=== PATIENT | male | born 1975 | race American Indian/Alaskan Native ===

== ENCOUNTER 2017-02-18 10:55 | Outpatient (CLI) | payer OTHER ==
--- NOTE | 2017-02-18 12:27 | Ultrasound Report ---
ULTRASOUND RENAL INDICATION: Chronic kidney disease, stage III. COMPARISON: None similar at this institution. FINDINGS: Renal sonography suggests mild increased renal cortical echogenicity. Grossly preserved contours. No hydronephrosis. RIGHT KIDNEY measures 11.8 x 4.6 x 5.7 cm with cortical thickness of 1.4 cm. Approximately 1.5 x 0.9 cm upper cortical cyst, image 9. LEFT KIDNEY estimated at 12 x 5.8 x 4.7 cm with cortical thickness of 1.5 cm. A 5 mm lower cortical cyst noted, image 27. URINARY BLADDER suboptimally distended and assessed. CONCLUSION: Mild underlying medical renal disease and small bilateral renal cysts sonographically without acute renal abnormality. Please correlate. Thank you for the opportunity to participate in this patient's care.
== END 2017-02-18 10:56 | disposition home or self-care (01) ==
LOC: US 10:55
PROVIDERS: ATTEND Internal Medicine Nephrology
DX: N18.3 Chronic kidney disease, stage 3 (moderate) (principal); N28.1 Cyst of kidney, acquired
CPT/HCPCS: 76770

== ENCOUNTER 2017-06-08 07:38 | Day surgery (SDC) | payer OTHER ==
[2017-06-08] MEDS ORDERED: VERSED ONE (09:15)
[2017-06-08] MEDS ORDERED: HEPARIN/NS 5000 UNIT/500ML(CATH LAB) 500 ML IR ONE (09:15)
[2017-06-08] MEDS ORDERED: SUBLIMAZE ONE (09:16)
[2017-06-08] MEDS ORDERED: NACL 0.9% 250ML 250 ML ONE (09:16)
[2017-06-08] MEDS ORDERED: XYLOCAINE 2% INFILTRATI ONE (09:16)
--- NOTE | 2017-06-08 09:25 | Short Stay Summary ---
Short Stay Documentation Date of service: 06/08/17 - History Past Medical History: ESRD, renal failure Social history: no significant social history - Allergies and Medications Current Medications: Allergies No Known Allergies Allergy (Unverified 06/03/17 16:44) Home Medications Medication Instructions Recorded Confirmed Last Taken Type Amlodipine Besylate [Amlodipine 10 tab PO DAILY 06/03/17 06/08/17 06/07/17 History Besylate] Ascorbic Acid [Vitamin C] 1 tab PO DAILY 06/03/17 06/08/17 06/07/17 History Ascorbic Acid [Vitamin C] 1 tab PO DAILY 06/03/17 06/08/17 06/07/17 History Carvedilol [Coreg] 25 mg PO BID 06/03/17 06/08/17 06/07/17 History Ferrous Sulfate [Ferrous Sulfate] 1 tab PO DAILY 06/03/17 06/08/17 06/07/17 History 1 Insulin NPH Hum/Reg Insulin Hm 30 unit SQ BID 06/03/17 06/08/17 06/07/17 History [Humulin 70-30 Vial] Sodium Bicarbonate [Sodium 1 tab PO TID 06/03/17 06/08/17 06/07/17 History Bicarbonate] 1 Zinc Sulfate [Zinc Sulfate] 2 tab PO DAILY 06/03/17 06/08/17 06/07/17 History - Physical exam General appearance: no acute distress Integumentary: no rash Lungs: Clear to auscultation, Other (rigth chest wall catheter without drainage or erythema) Heart: Regular rate Extremities: no ischemia, pulses intact - Brief post op/procedure progress note Date of procedure: 06/08/17 Pre-op diagnosis: Bactremia Post-op diagnosis: same Procedure: Exchange tunneled central venous catheter Anesthesia: local Findings: uncomplicated catheter exchange Surgeon: JESUS AGUILAR Estimated blood loss: none Pathology: none Condition: stable - Disposition Condition at discharge: Stable Disposition: DC-01 TO HOME OR SELFCARE Short Stay Discharge Plan Follow up with: MATTHIAS HERNANDEZ MD [Primary Care Provider] - 7 Days
[2017-06-08] MEDS: HEPARIN 10,000 UNITS/10 ML ONE ×2 (09:44→09:45)
[2017-06-08 10:57] VITALS: BP 123/75
--- NOTE | 2017-06-10 15:49 | Operative Report ---
Operative Report Operative Report: Preoperative diagnosis: Infected tunneled central venous catheter Postoperative diagnosis: Same Procedure performed: Exchange of tunneled central venous catheter via same access point Surgeon: Victorino Fields MD Side Door Worker: None Anesthesia: Moderate sedation Estimated blood loss: None Specimen: Catheter tip Complications: None Procedure in detail: After preoperative consent was obtained, the patient was brought into the cardiac catheterization suite. The patient was placed supine on the table. The correct patient and the correct site for surgery was identified. The right chest, neck and previously placed catheter was prepped with a Hibiclens prep and then a ChloraPrep and draped in sterile fashion. Fluoroscopy confirmed the tip of the catheter in the right atrium. 2% lidocaine was instilled at the catheter exit site, sharp dissection was then used to remove the catheter in the subcutaneous cuff. The catheter was transected and 20.035 Glidewire were passed under fluoroscopic guidance into the right atrium. The old catheter was removed and the tip was sent for culture. A 19 cm tip to cuff catheter was placed through the subcutaneous tunnel into the right atrium via the previous access site.the catheter was then secured to the chest wall with a 2-0 nylon suture. The catheter was locked with heparin 2500 units of heparin per port. The catheter replaced and the catheter was dressed sterilely. The patient tolerated the procedure well. Disposition: Home
== END 2017-06-08 11:05 | disposition home or self-care (01) ==
LOC: CATHLABREC 07:38
PROVIDERS: ATTEND Surgery Vascular Surgery
DX: T80.218A Other infection due to central venous catheter, initial encounter (principal); Y83.8 Other surgical procedures as the cause of abnormal reaction of the patient, or of later complication, without mention of misadventure at the time of the procedure; N18.4 Chronic kidney disease, stage 4 (severe)
CPT/HCPCS: 36415; 36581; 77001; 84132; 87076; 87116; 87186; C1750; C1769; J1644; J2250; J3010; J7050

== ENCOUNTER 2017-09-01 12:28 | Day surgery (SDC) | payer MEDICARE, OTHER ==
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
--- NOTE | 2017-09-01 14:17 | Anesthesia Day of Surgery ---
Anesthesia Day of Surgery - Day of Surgery Patient Examined: Yes Patient H&P Reviewed: Yes Patient is NPO: Yes Beta Blockers: Yes
[2017-09-01 14:33] LABS: Hematocrit 35.9 % (35.5-45.6); Hemoglobin 10.9 gm/dl (11.8-15.2)
[2017-09-01 14:38] LABS: Calcium 9.6 mg/dL (8.4-10.2); Chloride 95.5 mmol/L (98-107); Potassium 5.5 mmol/L (3.6-5.0)
[2017-09-01] MEDS ORDERED: NACL 0.9% 1000 ML 1,000 ML IV SCH (15:00)
[2017-09-01] MEDS ORDERED: PEPCID IV NR (15:00)
[2017-09-01] MEDS ORDERED: VERSED IV NR (15:00)
[2017-09-01] MEDS ORDERED: ANCEF/STERILE WATER 2 GM/20 ML IV NR (15:00)
[2017-09-01] MEDS ORDERED: DIPRIVAN 10 MG/ML IV ONE (15:01)
[2017-09-01] MEDS ORDERED: DILAUDID ONE ×2 (15:02→17:08)
[2017-09-01] MEDS ORDERED: MARCAINE 0.25% INFILTRATI ONE (15:07)
[2017-09-01] MEDS ORDERED: XYLOCAINE 1% 20 mL ONE (15:07)
[2017-09-01] MEDS ORDERED: HEPARIN 10,000 UNITS/10 ML ONE ×2 (15:07→16:08)
[2017-09-01] MEDS ORDERED: NACL 0.9% 250ML 250 ML ONE (15:08)
[2017-09-01] MEDS ORDERED: NACL 0.9% 500 ML 500 ML ONE (15:08)
[2017-09-01] MEDS ORDERED: MARCAINE 0.5% INFILTRATI ONE ×2 (15:12→15:20)
[2017-09-01] MEDS ORDERED: ANCEF ONE (15:13)
[2017-09-01] MEDS ORDERED: XYLOCAINE 1% 20 mL INFILTRATI ONE (15:20)
[2017-09-01] MEDS ORDERED: HEPARIN 10,000 UNITS/10 ML IR ONE (15:20)
[2017-09-01] MEDS ORDERED: NACL 0.9% 250ML IV ONE (15:20)
[2017-09-01] MEDS ORDERED: ANCEF IR ONE (15:20)
[2017-09-01] MEDS ORDERED: XYLOCAINE MPF 2% ONE (16:08)
[2017-09-01] MEDS ORDERED: PERCOCET 5/325 PO PRN (16:55)
--- NOTE | 2017-09-01 16:55 | Short Stay Summary ---
Short Stay Documentation Date of service: 09/01/17 Narrative H&P: Renal failure needs AV fistula - Allergies and Medications Current Medications: Allergies No Known Allergies Allergy (Verified 08/27/17 14:30) Home Medications Medication Instructions Recorded Confirmed Last Taken Type Amlodipine Besylate [Amlodipine 10 tab PO DAILY 06/03/17 09/01/17 08/31/17 09: 00 History Besylate] Ascorbic Acid [Vitamin C] 1 tab PO DAILY 06/03/17 09/01/17 08/31/17 09:00 History Carvedilol [Coreg] 25 mg PO BID 06/03/17 09/01/17 08/31/17 09:00 History Ferrous Sulfate [Ferrous Sulfate] 1 tab PO DAILY 06/03/17 09/01/17 08/31/17 09: 00 History Sodium Bicarbonate [Sodium 1 tab PO TID 06/03/17 09/01/17 08/31/17 17:00 History Bicarbonate] Zinc Sulfate [Zinc Sulfate] 2 tab PO DAILY 06/03/17 09/01/17 08/31/17 09:00 History Insulin Glargine,Hum.rec.anlog 40 unit SQ QAM 08/27/17 09/01/17 08/31/17 09:00 History [Lantus Solostar] Active Medications Cefazolin Sodium (Ancef/Sterile Water 2 Gm/20 Ml) 2 gm IV PREOP NR Stop: 09/01/17 23:59 Famotidine (Pepcid) 20 mg IV PREOP NR Stop: 09/01/17 23:59 Last Admin: 09/01/17 14:53 Dose: 20 mg Sodium Chloride (Nacl 0.9% 1000 Ml) 1,000 mls @ 42 mls/hr IV DIRECT YOEL Last Admin: 09/01/17 14:53 Dose: 42 mls/hr Midazolam HCl (Versed) 2 mg IV PREOP NR Stop: 09/01/17 23:59 Last Admin: 09/01/17 14:55 Dose: 2 mg - Physical exam General appearance: no acute distress Heart: Regular rate Extremities: no ischemia - Brief post op/procedure progress note Date of procedure: 09/01/17 Pre-op diagnosis: ESRD Post-op diagnosis: same Anesthesia: GETA Findings: Left brachiocephalic fistula Surgeon: JESUS AGUILAR Estimated blood loss: minimal Pathology: none Condition: stable - Disposition Condition at discharge: Good Disposition: DC-01 TO HOME OR SELFCARE Short Stay Discharge Plan Follow up with: MATTHIAS HERNANDEZ MD [Primary Care Provider] - 7 Days
[2017-09-01] MEDS ORDERED: NORMODYNE IV ONE (17:00)
[2017-09-01] MEDS: DILAUDID IV PRN ×3 (17:00→17:26)
[2017-09-01 20:57] VITALS: BP 150/88
--- NOTE | 2017-09-02 05:30 | Operative Report ---
PREOPERATIVE DIAGNOSIS: End-stage renal disease. POSTOPERATIVE DIAGNOSIS: End-stage renal disease. PROCEDURE: Left brachiocephalic arteriovenous fistula. SURGEON: Vicotrino Fields MD CYLINDER STEAMER: None. ANESTHESIA: General anesthesia by LMA. ESTIMATED BLOOD LOSS: Minimal. SPECIMENS: None. COMPLICATIONS: None. INDICATIONS FOR PROCEDURE: The patient requires access for long-term hemodialysis. DESCRIPTION OF PROCEDURE: The patient brought to the operating room. He was given general anesthesia by LMA. The left lower extremity was prepped with ChloraPrep, draped in a sterile fashion after correct patient and the correct site for surgery was identified. An oblique incision was made at the antecubital fossa. Sharp and electrocautery dissection used to dissect through skin and subcutaneous tissue. The median antecubital branch of cephalic vein was identified. It was noted to be patent without stenosis. It was dissected proximally and distally. The brachial artery was dissected beneath the fascia medially. The cephalic vein was gently dilated with heparin. It was deemed adequate as the venous outflow. After 3 minutes of heparin circulation time, the brachial artery was controlled with atraumatic vascular clamps. An 11 blade was used to make an arteriotomy with Bautista scissors. A 6-0 Prolene suture was then used to create an end-to-side anastomosis vein to artery. Prior to completion of anastomosis, the vein was irrigated and the anastomosis was completed. The clamps were removed. There is a palpable thrill and audible bruit by Doppler. Hemostasis was achieved. The wounds irrigated with antibiotic saline solution and closed in layers. The deep layer was closed with Vicryl. Skin was closed with Monocryl, dressed sterilely. The patient tolerated the procedure well. The sponge, needle and instrument counts were correct. JOB# [id number] JEFFREY/JUSTIN
== END 2017-09-01 18:30 | disposition home or self-care (01) ==
LOC: OR 12:28
PROVIDERS: ATTEND Surgery Vascular Surgery
DX: I12.0 Hypertensive chronic kidney disease with stage 5 chronic kidney disease or end stage renal disease (principal); E11.22 Type 2 diabetes mellitus with diabetic chronic kidney disease; N18.6 End stage renal disease; Z79.4 Long term (current) use of insulin; Z79.899 Other long term (current) drug therapy; Z83.3 Family history of diabetes mellitus
CPT/HCPCS: 36415; 36821; 80048; 82962; 85014; 85018; J0690; J1170; J1644; J2250; J2704; J7030; J7040; J7050

== ENCOUNTER 2017-12-22 13:23 | Day surgery (SDC) | payer MEDICARE, OTHER ==
--- NOTE | 2017-12-22 10:47 | Short Stay Summary ---
Short Stay Documentation Date of service: 12/22/17 - History Principal diagnosis: ESRD Past Medical History: ESRD, hypertension, renal failure, other (AV fistula) - Allergies and Medications Current Medications: Allergies No Known Allergies Allergy (Verified 12/21/17 09:00) Home Medications Medication Instructions Recorded Confirmed Last Taken Type Amlodipine Besylate 10 tab PO DAILY 06/03/17 12/21/17 08/31/17 09:00 History Ascorbic Acid [Vitamin C] 1 tab PO DAILY 06/03/17 12/21/17 08/31/17 09:00 History Carvedilol [Coreg] 25 mg PO BID 06/03/17 12/21/17 08/31/17 09:00 History Ferrous Sulfate 1 tab PO DAILY 06/03/17 12/21/17 08/31/17 09:00 History Sodium Bicarbonate 1 tab PO TID 06/03/17 12/21/17 08/31/17 17:00 History Zinc Sulfate 2 tab PO DAILY 06/03/17 12/21/17 08/31/17 09:00 History Insulin Glargine,Hum.rec.anlog 40 unit SQ QAM 08/27/17 12/21/17 08/31/17 09:00 History [Lantus Solostar] oxyCODONE /ACETAMINOPHEN [Percocet 1 tab PO Q6HR PRN #20 tablet 09/01/17 Unknown Rx 5/325] - Physical exam General appearance: no acute distress HEENT: Atraumatic Lungs: Clear to auscultation Breasts: deferred Heart: Regular rate Male Genitourinary: deferred Rectal Exam: deferred Extremities: abnormal (left AV fistula occluded) - Brief post op/procedure progress note Date of procedure: 12/22/17 (Procedure cancelled secondary to abscess) - Hospital course Hospital course: Intraoperative exam reveal an abscess in the axillary fossa, no external drainage, but fluctulent - Disposition Condition at discharge: Stable Disposition: DC-01 TO HOME OR SELFCARE Short Stay Discharge Plan Follow up with: MATTHIAS HERNANDEZ MD [Primary Care Provider] - 7 Days
[~2017-12-22 13:23] MED LIST: ANCEF ONE; ANCEF/STERILE WATER 2 GM/20 ML 2 GM/20 ML SYRINGE IV ONE; GELFOAM TP ONE; HEPARIN 10,000 UNITS/10 ML ONE; MARCAINE-EPI 0.5%-1:200,000 INFILTRATI ONE; NACL 0.9% 500 ML 500 ML ONE; THROMBIN (BOVINE) TP ONE; XYLOCAINE 1% 20 mL ONE; ceFAZolin 2 GM in NACL 0.9% 100 ML IV ONE
[2017-12-22] MEDS ORDERED: NACL BACTERIOSTATIC INFILTRATI ONE (13:55)
[2017-12-22 14:32] LABS: Hematocrit 37.8 % (35.5-45.6)
[2017-12-22] MEDS ORDERED: DILAUDID IV PRN (14:38)
[2017-12-22] MEDS ORDERED: ZOFRAN IV PRN (14:38)
[2017-12-22] MEDS ORDERED: ANCEF/STERILE WATER 2 GM/20 ML 2 GM/20 ML SYRINGE IV SCH (15:00)
[2017-12-22] MEDS ORDERED: NACL 0.9% 1000 ML 1,000 ML IV SCH (15:00)
[2017-12-22] MEDS ORDERED: PEPCID IV NR (15:00)
--- NOTE | 2017-12-22 15:06 | Anesthesia Consultation ---
Anesthesia Consult and Med Hx Date of service: 12/22/17 - Airway Anesthetic Teeth Evaluation: Good ROM Head & Neck: Adequate Mental/Hyoid Distance: Adequate Mallampati Class: Class II Intubation Access Assessment: Probably Good - Pulmonary Exam CTA: Yes - Pre-Operative Health Status ASA Pre-Surgery Classification: ASA3 Proposed Anesthetic Plan: General - Pulmonary Hx Smoking: No Hx Asthma: No - Cardiovascular System Hx Hypertension: Yes - Central Nervous System Hx Psychiatric Problems: No - Gastrointestinal Hx Gastroesophageal Reflux Disease: No (irritated from emesis over one week ago - Protonix controlling) - Endocrine Hx Renal Disease: Yes Hx End Stage Renal Disease: Yes (dialysis MWF) Hx Insulin Dependent Diabetes: Yes - Hematic Hx Anemia: Yes - Other Systems Hx Cancer: No
--- NOTE | 2017-12-22 15:10 | Anesthesia Day of Surgery ---
Anesthesia Day of Surgery - Day of Surgery Patient Examined: Yes Patient H&P Reviewed: Yes Patient is NPO: Yes
[2017-12-22] MEDS ORDERED: DIPRIVAN 10 MG/ML IV ONE (15:15)
[2017-12-22] MEDS ORDERED: XYLOCAINE MPF 2% ONE (15:18)
[2017-12-22] MEDS ORDERED: ZOFRAN ONE (15:54)
[2017-12-22 18:35] VITALS: BP 130/90
== END 2017-12-22 17:22 | disposition home or self-care (01) ==
LOC: OR 13:23
PROVIDERS: ATTEND Surgery Vascular Surgery
DX: T82.898A Other specified complication of vascular prosthetic devices, implants and grafts, initial encounter (principal); Y83.2 Surgical operation with anastomosis, bypass or graft as the cause of abnormal reaction of the patient, or of later complication, without mention of misadventure at the time of the procedure; E11.22 Type 2 diabetes mellitus with diabetic chronic kidney disease; I12.0 Hypertensive chronic kidney disease with stage 5 chronic kidney disease or end stage renal disease; N18.6 End stage renal disease; K21.9 Gastro-esophageal reflux disease without esophagitis; Z99.2 Dependence on renal dialysis; Z79.4 Long term (current) use of insulin; Z79.899 Other long term (current) drug therapy; Z53.8 Procedure and treatment not carried out for other reasons
CPT/HCPCS: 36415; 82962; 84132; 85014; 85018; J0690; J1644; J2405; J2704; J7030; J7040; A4649

== ENCOUNTER 2018-03-25 17:38 | Emergency (ER) | payer MEDICARE ==
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
[2018-03-25 18:39] LABS: Mean Corpuscular HGB Conc 30 % (32-34); Mean Corpuscular Volume 75 fl (84-94); Platelet Count 253 K/mm3 (140-440)
[2018-03-25 18:42] LABS: Hematocrit 42.6 % (35.5-45.6); Hemoglobin 12.8 gm/dl (11.8-15.2); Mean Corpuscular Hemoglobin 22 pg (28-32); Red Cell Distribution Width 29.3 % (13.2-15.2)
[2018-03-25] MEDS ORDERED: CARDIZEM IV ONE ×2 (18:52→21:20)
[2018-03-25] MEDS ORDERED: ASPIRIN PO ONE (18:54)
[2018-03-25 19:04] LABS: Creatine Kinase MB 3.9 ng/mL (0.0-4.0)
[2018-03-25 19:11] LABS: Free T4 (Free Thyroxine) 1.38 ng/dL (0.76-1.46)
--- NOTE | 2018-03-25 19:15 | History and Physical Report ---
History of Present Illness Chief complaint: My sugar got low and i passed out History of present illness: 42 YO Male with HTN, ESRD on HD(T,R,Sa), DM presents to ED for evaluation. Pt states that he was resting at home today and subsequently got dizzy and passed out. Pt family called EMS and upon arrival the patient was found to have a serum glucose of 17. Pt was administered one amp of D50 with improvement in symptoms. Pt transported to [facility] for further care and evaluation. Pt seen and evaluated in ED. Pt acknowledges decreased oral intake. Pt also found to have Atrial Fib with RVR. Pt treated with cardizem bolus, and oral cardizem therapy. Pt admitted to telemetry. Cardiology consulted in ED. Past History Past Medical History: diabetes, ESRD, hypertension Past Surgical History: Other (Vas Cath Right Chest) Social history: , lives with family Family history: diabetes, hypertension Medications and Allergies Allergies Allergy/AdvReac Type Severity Reaction Status Date / Time No Known Allergies Allergy Verified 12/21/17 09:00 Home Medications Medication Instructions Recorded Confirmed Last Taken Type Amlodipine Besylate 10 tab PO DAILY 06/03/17 03/25/18 12/22/17 10:00 History Sodium Bicarbonate 1 tab PO TID 06/03/17 03/25/18 12/22/17 10:00 History Insulin Glargine,Hum.rec.anlog 40 unit SQ DAILY 08/27/17 03/25/18 12/21/17 History [Lantus Solostar] Carvedilol [Coreg] 12.5 mg PO BID 03/25/18 03/25/18 Unknown History Lispro Insulin [Humalog] 12 unit SQ TID 03/25/18 03/25/18 Unknown History Pantoprazole [Protonix] 40 mg PO DAILY 03/25/18 03/25/18 Unknown History hydrALAZINE [Apresoline] 25 mg PO TID 03/25/18 03/25/18 Unknown History Review of Systems Constitutional: no weight loss, no weight gain, no fever, no chills Ears, nose, mouth and throat: no ear pain, no ear discharge, no tinnitis, no decreased hearing, no nose pain, no nasal congestion, no nasal discharge Cardiovascular: syncope, no chest pain, no orthopnea, no palpitations, no rapid/ irregular heart beat, no edema, no lightheadedness, no shortness of breath Respiratory: no cough, no cough with sputum, no excessive sputum, no hemoptysis Gastrointestinal: no nausea, no vomiting, no diarrhea, no constipation, no change in bowel habits, no hematemesis Genitourinary Male: no dysuria, no hematuria, no flank pain, no discharge, no urinary frequency, no urinary hesitancy, no nocturia Rectal: no pain, no incontinence, no bleeding Musculoskeletal: no neck stiffness, no neck pain, no arm numbness/tingling, no low back pain, no shooting leg pain, no leg numbness/tingling, no redness of joints Integumentary: no rash, no pruritis, no redness, no sores, no wounds, no jaundice Neurological: no head injury, no transient paralysis, no paralysis, no weakness , no parathesias, no numbness, no tingling, no seizures Psychiatric: no anxiety, no memory loss, no change in sleep habits, no sleep disturbances, no insomnia, no hypersomnia, no change in appetite, no change in libido, no suicidal ideation Endocrine: no cold intolerance, no heat intolerance, no polyphagia, no excessive thirst, no polydipsia, no polyuria, no nocturia Hematologic/Lymphatic: no easy bruising, no easy bleeding, no lymphadenopathy, no lymphedema Allergic/Immunologic: no urticaria, no allergic rhinitis, no wheezing, no persistent infections, no anaphylaxis Exam - Constitutional Vitals: Temp Pulse Resp BP Pulse Ox 123 H 22 164/100 99 03/25/18 19:03 03/25/18 19:03 03/25/18 19:03 03/25/18 19:03 General appearance: Present: mild distress - EENT Eyes: Present: PERRL ENT: hearing intact, clear oral mucosa - Neck Neck: Present: supple, normal ROM - Respiratory Respiratory effort: normal Respiratory: bilateral: CTA - Cardiovascular Rhythm: irregularly irregular Heart Sounds: Present: S1 & S2. Absent: rub, click - Extremities Extremities: pulses symmetrical, No edema Peripheral Pulses: within normal limits - Abdominal General gastrointestinal: Present: soft, non-tender, non-distended, normal bowel sounds Male genitourinary: Present: normal - Integumentary Integumentary: Present: clear, warm, dry - Musculoskeletal Musculoskeletal: gait normal, strength equal bilaterally - Psychiatric Psychiatric: appropriate mood/affect, intact judgment & insight - Neurologic Neurologic: CNII-XII intact, moves all extremities Results - Labs CBC & Chem 7: 03/25/18 18:31 03/25/18 18:31 Labs: Abnormal lab results 03/25/18 03/25/18 03/25/18 Range/Units 18:31 18:31 18:31 WBC 12.2 H (4.5-11.0) K/mm3 RBC 5.70 H (3.65-5.03) M/mm3 MCV 75 L (84-94) fl MCH 22 L (28-32) pg MCHC 30 L (32-34) % RDW 29.3 H (13.2-15.2) % BUN 41 H (9-20) mg/dL Creatinine 8.0 H (0.8-1.5) mg/dL Glucose 73 L (75-100) mg/dL POC Glucose (70-105) Magnesium 2.60 H (1.7-2.3) mg/dL 03/25/18 Range/Units 18:39 WBC (4.5-11.0) K/mm3 RBC (3.65-5.03) M/mm3 MCV (84-94) fl MCH (28-32) pg MCHC (32-34) % RDW (13.2-15.2) % BUN (9-20) mg/dL Creatinine (0.8-1.5) mg/dL Glucose (75-100) mg/dL POC Glucose 69 L (70-105) Magnesium (1.7-2.3) mg/dL Assessment and Plan - Patient Problems (1) ESRD (end stage renal disease) Current Visit: Yes Status: Acute Plan to address problem: Nephrology consulted in ED, dialysis as per renal team. (2) Atrial fibrillation with rapid ventricular response Current Visit: Yes Status: Acute Plan to address problem: IV Cardizem, Scheduled cardizem tid, cardiology consulted, Echo, (3) Hypoglycemia Current Visit: Yes Status: Acute Plan to address problem: resolved, accu check AC/HS, low dose SSI (4) Pneumonia Current Visit: Yes Status: Acute Qualifiers: Laterality: left Lung location: lower lobe of lung Plan to address problem: IV antibiotics, Chest X ray, nebulizer therapy, supplemental oxygen, blood culture (5) DVT prophylaxis Current Visit: Yes Status: Acute Plan to address problem: SCD to BLE while in bed.
[2018-03-25 19:16] LABS: Anisocytosis 1+; Basophils % (Manual) 0 % (0.0-1.8); Eosinophils % (Manual) 0 % (0.0-4.3); Ovalocytes 1+; Platelet Estimate Consistent w Auto; Target Cells Few; Tear Drop Cells Few; Total Cells Counted 100
[2018-03-25] MEDS ORDERED: SODIUM CHLORIDE FLUSH SYRINGE 10 ML IV PRN (19:32)
[2018-03-25] MEDS ORDERED: TYLENOL PO PRN (19:32)
[2018-03-25] MEDS ORDERED: ZOFRAN IV PRN (19:32)
[2018-03-25] MEDS ORDERED: PROVENTIL IH PRN (19:32)
[2018-03-25 19:41] LABS: Chol/HDL Ratio 2.29 %
[2018-03-25] MEDS ORDERED: SODIUM BICARBONATE PO SCH (20:00)
--- NOTE | 2018-03-25 20:04 | XRay Report ---
FINAL REPORT PROCEDURE: XR CHEST 1V AP TECHNIQUE: Chest radiograph anteroposterior view. CPT 33811 HISTORY: Cough. COMPARISON: No prior studies are available for comparison. FINDINGS: Heart: Mild cardiomegaly. Mediastinum/Vessels: Normal. Lungs/Pleural space: Subtle perihilar indistinctness. Left lower lobe linear opacities. Bony thorax: No acute osseous abnormality. Life support devices: Dialysis catheter tip in the right atrium. IMPRESSION: Cardiomegaly. Subtle perihilar indistinctness. Left lower lobe linear opacities. Consider mild volume overload/congestive heart failure with atelectasis. Dialysis catheter tip in the right atrium.
[2018-03-25] MEDS ORDERED: D50W (25GM) Syringe IV PRN (20:16)
[2018-03-25] MEDS ORDERED: CARDIZEM ONE (21:13)
[2018-03-25] MEDS ORDERED: COREG ONE (21:23)
[2018-03-25] MEDS ORDERED: PEPCID PO SCH (22:00)
[2018-03-25] MEDS ORDERED: HumaLOG SUB-Q SCH (22:00)
[2018-03-25] MEDS ORDERED: SODIUM CHLORIDE FLUSH SYRINGE 10 ML IV SCH (22:00)
[2018-03-25] MEDS ORDERED: COREG PO SCH ×2 (22:00)
[2018-03-25 22:02] VITALS: BP 155/95
[2018-03-26] MEDS ORDERED: CARDIZEM PO SCH
[2018-03-26] MEDS ORDERED: APRESOLINE PO SCH (08:00)
[2018-03-26] MEDS ORDERED: PROTONIX PO SCH (10:00)
[2018-03-26] MEDS ORDERED: ZINC SULFATE PO SCH (10:00)
[2018-03-26] MEDS ORDERED: NORVASC PO SCH (10:00)
[2018-03-26] MEDS ORDERED: ROCEPHIN/NS 1 GM/50 ML 1 GM/50 ML BAG IV SCH (10:00)
[2018-03-26] MEDS ORDERED: FEOSOL PO SCH (10:00)
[2018-03-26] MEDS ORDERED: ZITHROMAX 500 MG in NACL 0.9% 250ML 250 ML IV SCH (10:00)
[2018-03-26] MEDS ORDERED: VITAMIN C PO SCH (10:00)
== END 2018-03-25 22:33 | disposition admitted as inpatient to this hospital (09) ==
LOC: ED 17:38 → 4A 19:32 → UNDOADMIN 19:32
DX: E16.2 Hypoglycemia, unspecified (principal); I48.91 Unspecified atrial fibrillation; E11.22 Type 2 diabetes mellitus with diabetic chronic kidney disease; I12.0 Hypertensive chronic kidney disease with stage 5 chronic kidney disease or end stage renal disease; N18.6 End stage renal disease; Z99.2 Dependence on renal dialysis; Z79.84 Long term (current) use of oral hypoglycemic drugs
CPT/HCPCS: 36415; 71045; 80048; 80061; 82550; 82553; 82962; 83735; 84439; 84443; 84484; 85007; 85025; 93005; 93010; 96374; 96375; J0456; J7050